=== PATIENT | female | born 1985 | race Caucasian/White ===

== ENCOUNTER 2023-06-11 14:12 | Emergency (ER) | payer SELFPAY ==
[~2023-06-11] VITALS: Ht 162.6 cm; Wt 65.8 kg
[2023-06-11 14:19] VITALS: O2SAT 96
[2023-06-11] MEDS ORDERED: SULFAMETH/TRIMETH 800/160 MG TABLET PO ONE (14:45)
[2023-06-11] MEDS ORDERED: CEFTRIAXONE 1 G VIAL IM ONE (14:45)
[2023-06-11] MEDS ORDERED: CEFTRIAXONE 1 G VIAL ONE (15:40)
[2023-06-11] MEDS ORDERED: SULFAMETH/TRIMETH 800/160 MG TABLET ONE (15:40)
[2023-06-11] MEDS ORDERED: CEPH500T PO (16:16)
[2023-06-11] MEDS ORDERED: SULF1TAB48 PO (16:16)
== END 2023-06-11 18:28 | disposition home or self-care (01) ==
LOC: ER 14:17
DX: L03.113 Cellulitis of right upper limb (principal); G43.909 Migraine, unspecified, not intractable, without status migrainosus; Z88.8 Allergy status to other drugs, medicaments and biological substances
CPT/HCPCS: 99285; 93971; 73090; 96372; J0696; A4606; A4663